=== PATIENT | female | born 1975 | race Caucasian/White ===

== ENCOUNTER 2018-12-10 23:10 | Emergency (ER) | payer BC ==
[~2018-12-10] VITALS: Ht 160 cm; Wt 72.6 kg
[2018-12-10 23:27] VITALS: Ht 160 cm; Wt 72.6 kg
[2018-12-11] LABS: BASOPHIL % 0.7 % (0-2); PLATELET COUNT 319 x10^3mcL (130-400)
[2018-12-11 00:05] LABS: RED CELL DISTRIBUTION WIDTH 15.2 % (11.5-14.5)
[2018-12-11 00:11] LABS: CALCIUM 9.4 mg/dL (8.5-10.1); CARBON DIOXIDE 23.8 mmol/L (21-32); CHLORIDE SERUM 104 mmol/L (98-107); GFR1 > 60 mL/min; GLUCOSE SERUM 120 mg/dL (74-106); POTASSIUM SERUM 3.5 mmol/L (3.5-5.1); SODIUM SERUM 139 mmol/L (136-145)
[2018-12-11 00:15] LABS: ALBUMIN 3.9 g/dL (3.4-5.0); ALKALINE PHOSPHATASE 112 U/L (46-116); ALT/SGPT 20 U/L (14-59); AST/SGOT 16 U/L (15-37); BILIRUBIN TOTAL 0.3 mg/dL (0.20-1.00); LIPASE 80 IU/L (73-393); TOTAL PROTEIN, SERUM 8.1 g/dL (6.4-8.2)
[2018-12-11 02:02] VITALS: BP 125/75
== END 2018-12-11 02:02 | disposition home or self-care (01) ==
LOC: ED 23:10
PROVIDERS: Emergency Medicine
DX: F41.9 Anxiety disorder, unspecified (principal); F11.20 Opioid dependence, uncomplicated; Z98.890 Other specified postprocedural states
CPT/HCPCS: J1200; J1885; J2060; J2405; J7030